=== PATIENT | male | born 1950 | race Caucasian/White ===

== ENCOUNTER 2021-10-05 14:28 | Emergency (ER) | payer OTHER ==
[~2021-10-05] VITALS: Ht 177.8 cm; Wt 86.2 kg
[2021-10-05 15:13] VITALS: BP_SYST 154
[2021-10-05 18:32] LABS: BASOPHILS % (AUTO) 0.6 % (0.0-2.0); EOSINOPHILS % (AUTO) 0.1 % (0.0-4.0); HEMATOCRIT 46.1 % (36-54); HEMOGLOBIN 15.3 g/dL (14.0-18.0); LYMPHOCYTES % (AUTO) 16.5 % (20.5-51.5); MEAN CORPUSCULAR HEMOGLOBIN 27 pg (27-31); MEAN CORPUSCULAR HGB CONC 33 % (32-36); MEAN CORPUSCULAR VOLUME 82 fL (79.0-98.0); MONOCYTES % (AUTO) 0.8 % (1.7-9.3); PLATELET COUNT (AUTO) 279 K/uL (130-430); RED BLOOD CELL COUNT(AUTO) 5.62 MIL/uL (4.2-6.2); RED CELL DISTRIBUTION WIDTH 15.6 % (9.0-15.0); WHITE BLOOD COUNT (AUTO) 6.1 K/uL (4.8-10.8)
[2021-10-05 18:51] LABS: ANION GAP 11 (5-15); CALCIUM 9.5 mg/dL (8.4-11.0); CHLORIDE 103 mmol/L (98-107); CREATININE 1.99 mg/dL (0.55-1.30); GLUCOSE 185 mg/dL (70-99); SODIUM SERUM 139 mmol/L (136-145); UREA NITROGEN, BLOOD 27 mg/dL (8-21)
[2021-10-05 18:57] LABS: ALANINE AMINOTRANSFERASE 48 U/L (12-78); ALBUMIN 3.9 g/dL (3.4-4.8); ASPARTATE AMINOTRANSFERASE 23 U/L (10-37); TOTAL BILIRUBIN 0.6 mg/dL (0.0-1.0)
[2021-10-05] MEDS ORDERED: NACL 0.9% 1,000 ML IV ONE (19:15)
[2021-10-05] MEDS ORDERED: COLCHICINE 0.6 MG TABLET PO ONE ×2 (19:30→20:30)
[2021-10-05] MEDS ORDERED: calcitrioL 0.25 MCG CAPSULE ONE (20:22)
[2021-10-05] MEDS ORDERED: COLCHICINE 0.6 MG TABLET ONE (20:57)
[2021-10-05 20:58] LABS: C-REACTIVE PROTEIN QUANT 0.4 mg/dL (0-0.5); URIC ACID 6.9 mg/dL (2.4-7.0)
[2021-10-05 22:19] VITALS: BP_SYST 142
== END 2021-10-05 22:19 | disposition home or self-care (01) ==
LOC: SED 14:28
DX: M10.9 Gout, unspecified (principal); M79.674 Pain in right toe(s); I12.9 Hypertensive chronic kidney disease with stage 1 through stage 4 chronic kidney disease, or unspecified chronic kidney disease; N18.30 Chronic kidney disease, stage 3 unspecified; N40.0 Benign prostatic hyperplasia without lower urinary tract symptoms; K21.9 Gastro-esophageal reflux disease without esophagitis; E78.00 Pure hypercholesterolemia, unspecified; Z79.899 Other long term (current) drug therapy
CPT/HCPCS: 99284; 96360; 80053; 84550; 85025; 85651; 86140; 87040; 36415; 73660; 83605; J7030